=== PATIENT | male | born 1995 | race Caucasian/White ===

== ENCOUNTER 2018-02-21 03:02 | Emergency (ER) | payer BC ==
[~2018-02-21] VITALS: Ht 200.7 cm; Wt 95.5 kg
[2018-02-21 03:09] VITALS: TEMP 97.3
[2018-02-21] MEDS ORDERED: SINGULAIR 110 MG/TAB PO (03:18)
[2018-02-21] MEDS ORDERED: ZYRTEC 10MG10 MG PO (03:18)
[2018-02-21] MEDS ORDERED: CLEOCIN HCL300 MG PO (05:31)
[2018-02-21] MEDS ORDERED: NORCO 325 MG-51 TAB PO (05:31)
[2018-02-21 06:34] VITALS: BP 149/97; PULSE 74
== END 2018-02-21 06:35 | disposition home or self-care (01) ==
LOC: COL.ER 03:02
DX: S02.42XA Fracture of alveolus of maxilla, initial encounter for closed fracture (principal); S01.511A Laceration without foreign body of lip, initial encounter; S01.411A Laceration without foreign body of right cheek and temporomandibular area, initial encounter; S06.9X0A Unspecified intracranial injury without loss of consciousness, initial encounter; Z23 Encounter for immunization; Z98.890 Other specified postprocedural states; X58.XXXA Exposure to other specified factors, initial encounter; Y92.009 Unspecified place in unspecified non-institutional (private) residence as the place of occurrence of the external cause